=== PATIENT | female | born 1980 | race Caucasian/White ===

== ENCOUNTER → 2019-11-29 10:59 | Outpatient (CLI) | payer BC, SELFPAY ==
[2019-11-29 11:31] LABS: Basophils % 0.4 % (0.1-2.0); Eosinophils # 0.3 K/mm3 (0.0-0.4); Eosinophils % 2.7 % (0.1-12.0); Hematocrit 42.7 % (37.0-47.0); Lymphocytes # 3.4 K/mm3 (0.7-4.5); Lymphocytes % 33.8 % (10-50); Mean Corpuscular HGB Conc 32.6 g/dL (31.8-35.4); Mean Corpuscular Hemoglobin 30.5 pg (27.0-31.2); Mean Corpuscular Volume 93.4 fl (81-99); Mean Platelet Volume 6.9 fl (7.4-10.4); Monocytes # 0.6 K/mm3 (0.1-1.0); Monocytes % 6.1 % (1.7-9.3); Neutrophils # 5.7 K/mm3 (1.8-7.8); Neutrophils % 57.1 % (37.0-80.0); Platelet Count 326 K/mm3 (142-424); Red Blood Count 4.57 M/mm3 (4.20-5.40); Red Cell Distribution Width 12.2 % (11.5-17.5)
[2019-11-29 16:14] LABS: Alanine Aminotransferase 18 U/L (9-52); Albumin Level 3.4 g/dL (3.4-5.0); Albumin/Globulin Ratio 1.3 (1.1-1.8); Alkaline Phosphatase 67 U/L (46-116); Anion Gap 11.4 mEq/L (5-15); Bilirubin,Total 0.2 mg/dL (0.2-1.0); Blood Urea Nitrogen 12 mg/dL (7-18); Calcium 8.4 mg/dL (8.5-10.1); Carbon Dioxide 30 mmol/L (21.0-32.0); Chloride 106 mmol/L (98-107); Creatinine,Serum 0.85 mg/dL (0.55-1.02); Estimated Glomerular Filt Rate 74 ml/min (>60); GFR (African American) 90 ML/MIN (>60); Globulin 2.6 gm/dl (1.3-3.2); Glucose 74 mg/dL (74-106); Sodium 143 mmol/L (137-145); Thyroid Stimulating Hormone 1.44 uIU/ml (0.358-3.740)
[2019-11-29 16:19] LABS: Aspartate Amino Transferase 12 U/L (15-37); Potassium 4.4 mmoL/L (3.5-5.1)
[2019-11-30 16:29] LABS: Vitamin B12 456 pg/mL (232-1245); Vitamin D 25 Hydroxy 26.3 ng/mL (30.0-100.0)
== END ==
PROVIDERS: Visit Provider Nurse Practitioner Family
DX: R53.83 Other fatigue (principal); E55.9 Vitamin D deficiency, unspecified
CPT/HCPCS: 36415; 80053; 82607; 82652; 84443; 85025

== ENCOUNTER 2021-04-28 14:25 | Emergency (ER) | payer BC, SELFPAY ==
[2021-04-28 15:30] VITALS: BP 118/79; PULSE 97; RESP 19; TEMP 36.6; O2SAT 99; BMI 33.5
[2021-04-28 16:06] LABS: Apearance,Urine Clear (Clear); Color,Urine Yellow (Yellow); PH,Urine 5.5 (5.0-8.5); Protein,Urine Negative (Negative)
[2021-04-28 16:07] LABS: Bilirubin,Urine Negative (Negative); Blood, Urine Trace (Negative); Glucose,Urine (UA) Negative (Negative); Ketones,Urine Negative (Negative); UTC Leukocyte Esterase,Urine Negative (Negative); UTC Nitrate,Urine Negative (Negative); Urobilinogen,Urine 0.2 EU/dl (0.2)
--- NOTE | 2021-04-28 16:07 | HMH.EDUTC ---
[facility] [place] Clinical Impression: Muscle spasm Disposition: Home, Self-Care Condition on Discharge: Good Instructions: Low Back Pain, DI for Low Back Pain, Cyclobenzaprine Additional Instructions: *Ibuprofen chidi 6 hours with meal as needed for pain/inflammation *Remember you had a Toradol shot in the clinic today, which is similar to Motrin *Not additional anti-inflammatory like motrin, aleve, advil with the above amount of ibuprofen. You can still take Tylenol every 4 hours as needed if you need something else for pain *Ice 20 minutes every 2 hours for the first 48 hours after the initial injury followed by moist heat every 20 minutes 3-4 times a day to affected area *Muscle relaxer every 8 hours as needed for muscle spasms but remember, it WILL cause drowsiness You cannot take it and drive, operate machinery or care for small children. *Keep this area active, no movement leads to more stiffness, However take it easy and avoid heavy lifting pushing or pulling *Follow up with you family doctor if no improvement for further treatment Prescriptions: Cyclobenzaprine HCl [Flexeril 10mg tablet] 10 mg PO TID PRN #15 tab PRN Reason: Muscle Spasm Transmission Status: Pending to [facility] methylPREDNISolone [Medrol 4mg tab] 4 mg PO DIRECTED #21 tab Transmission Status: P[facility] Referrals: Roberta Velasco APRN [Primary Care Provider] - As needed Time of Disposition: 16:40 Medical Decision Making - Jong Inquiry Pt receiving controlled substance: No Jong was queried for this patient: No Vital Signs: 04/28/21 15:30 04/28/21 16:28 Temperature 97.9 F 97.9 F Temperature Source Oral Pulse Rate 97 H Pulse Rate [Right Brachial] 97 H Respiratory Rate 19 19 Blood Pressure 118/79 Blood Pressure [Right Arm] 118/79 Blood Pressure Mean [Right Arm] 92 Blood Pressure Source [Right Arm] Automatic Cuff Blood Pressure Position [Right Arm] Sitting 02 Sat by Pulse Oximetry 99 Oxygen Delivery Method Room Air - Lab Data Lab Results 04/28/21 15:55: Urine Color Yellow, Urine Appearance Clear, Urine pH 5.5, Ur Specific [place] 1.010, Urine Protein Negative, Urine Glucose (UA) Negative, Urine Ketones Negative, Urine Blood Trace, Urine Nitrate Negative, Urine Bilirubin Negative, Urine Urobilinogen 0.2, Ur Leukocyte Esterase Negative Orders (Tests/Meds): ED MEDICATIONS Discontinued Medications Generic Name Dose Route Start Last Admin Trade Name Marsha PRN Reason Stop Dose Admin Cyclobenzaprine HCl 10 mg 04/28/21 16:12 04/28/21 16:27 Cyclobenzaprine 10mg Tablet PO 04/28/21 16:13 10 mg ONCE ONE Administration Methylprednisolone Sodium Succinate 125 mg 04/28/21 16:12 04/28/21 16:28 Methylprednisolone Sod Succ 125mg Vial IM 04/28/21 16:13 125 mg ONCE ONE Administration [facility] [place] - General Stated complaint: lower back pain Time Seen by Provider: 04/28/21 16:07 Mode of Arrival: Ambulatory Source of Information: Patient Limitations: No Limitations Description of Symptoms (Recalled from Triage Doc. by RN): PATIENT C/O MID-BACK TO RIGHT SIDE HEENT Symptoms (Recalled from RN notes): No Resp Symptoms (Recalled from RN notes): No Skin Symptoms (Recalled from RN notes): No MS Symptoms (Recalled from RN notes): Yes Functional Status (Recalled from RN notes): WNL - History of Present Illness Provider Complaint: Patient states that she was walking across the road and not sure if she may have stepped wrong or turned wrong and felt like she pulled something in her back just below her ribs and when it spasms up it feels like it comes around her side States that she has tried to stretch but feels like she gets caught up and makes the spasm worse Denies falling denies known injury - Related Data Home Medications Medication Instructions Recorded Confirmed ascorbic acid (vitamin C) 500 mg mg PO 02/10/18 03/27/21 capsule loratadine 10 mg tablet 10 m
[2021-04-28 16:28] VITALS: BP 118/79; PULSE 97; RESP 19; TEMP 36.6; O2SAT 99
== END 2021-04-28 16:46 | disposition home or self-care (01) ==
PROVIDERS: Emergency Provider Nurse Practitioner; PCP Nurse Practitioner Family
DX: M62.830 Muscle spasm of back (principal); M54.5 Low back pain; F17.210 Nicotine dependence, cigarettes, uncomplicated; Z88.5 Allergy status to narcotic agent; J45.909 Unspecified asthma, uncomplicated
CPT/HCPCS: 81003; 96372; 99202; G0463

== ENCOUNTER → 2021-05-10 11:23 | Outpatient (CLI) | payer BC, SELFPAY ==
[2021-05-10 11:57] LABS: Basophils # 0.1 K/mm3 (0-0.2); Basophils % 0.8 % (0.1-2.0); Eosinophils # 0.3 K/mm3 (0.0-0.4); Eosinophils % 2.4 % (0.1-12.0); Hematocrit 40.4 % (37.0-47.0); Hemoglobin 13.8 g/dL (12.2-16.2); Lymphocytes # 3.7 K/mm3 (0.7-4.5); Lymphocytes % 35.3 % (10-50); Mean Corpuscular HGB Conc 34.3 g/dL (31.8-35.4); Mean Corpuscular Hemoglobin 30.5 pg (27.0-31.2); Mean Corpuscular Volume 88.9 fl (81-99); Mean Platelet Volume 7.3 fl (7.4-10.4); Monocytes # 0.5 K/mm3 (0.1-1.0); Monocytes % 4.3 % (1.7-9.3); Neutrophils % 57.2 % (37.0-80.0); Platelet Count 305 K/mm3 (142-424); Red Blood Count 4.54 M/mm3 (4.20-5.40); Red Cell Distribution Width 12.7 % (11.5-17.5); White Blood Count 10.5 K/mm3 (4.8-10.8)
[2021-05-10 12:11] LABS: Chloride 107 mmol/L (98-107); Sodium 139 mmol/L (136-145)
[2021-05-10 12:12] LABS: Potassium 4.1 mmoL/L (3.5-5.1)
[2021-05-10 12:14] LABS: Alanine Aminotransferase 13 U/L (12-78); Albumin Level 4.2 g/dl (3.5-5.0); Albumin/Globulin Ratio 1.8 (1.1-1.8); Alkaline Phosphatase 87 U/L (38-126); Anion Gap 13.1 mEq/L (5-15); Aspartate Amino Transferase 19 U/L (14-36); Bilirubin,Total 0.3 mg/dl (0.2-1.3); Blood Urea Nitrogen 6 mg/dl (7-17); Calcium 9.1 mg/dl (8.4-10.2); Carbon Dioxide 23 mmol/L (22.0-30.0); Cholesterol 201 mg/dl (140-200); Estimated Glomerular Filt Rate 93 ml/min (>60); GFR (African American) 112 ML/MIN (>60); Globulin 2.4 g/dL (1.3-3.2); Glucose 91 mg/dl (74-100); Total Protein,Serum 6.6 g/dl (6.3-8.2); Triglycerides 219 mg/dl (30-150); VLDL Cholesterol 44 mg/dL (0-40)
[2021-05-10 12:15] LABS: Chol/HDL Ratio 5.4 (1-3.5); HDL Cholesterol 37 mg/dl (40-60)
[2021-05-10 12:26] LABS: Direct LDL Cholesterol 115.88 mg/dL (100-129)
[2021-05-10 12:32] LABS: Free Thyroxine Index 2.3 ug/dL (5.93-13.13); Triiodothryronine (T3) Uptake 29 % (23.5-40.5)
[2021-05-10 12:46] LABS: Thyroid Stimulating Hormone 1.09 uIU/mL (0.465-4.68)
[2021-05-10 18:20] LABS: Vitamin B12 342 pg/mL (239-931)
== END ==
PROVIDERS: Visit Provider Nurse Practitioner Obstetrics & Gynecology
DX: Z01.419 Encounter for gynecological examination (general) (routine) without abnormal findings (principal); R53.82 Chronic fatigue, unspecified; Z79.899 Other long term (current) drug therapy
CPT/HCPCS: 36415; 80053; 80061; 82607; 84436; 84443; 84479; 85025

== ENCOUNTER → 2021-10-22 08:44 | Outpatient (CLI) | payer BC, SELFPAY | PROVIDERS: Visit Provider Nurse Practitioner | DX: Z20.822 Contact with and (suspected) exposure to COVID-19 (principal) | CPT/HCPCS: C9803; U0003; U0005 ==

== ENCOUNTER → 2021-11-18 10:50 | Outpatient (CLI) | payer BC, SELFPAY ==
[2021-11-19 06:54] LABS: Covid-19 Nasal PCR Sendout Lex NOT DETECTED
== END ==
PROVIDERS: PCP Internal Medicine Adolescent Medicine; Visit Provider Nurse Practitioner
DX: Z20.822 Contact with and (suspected) exposure to COVID-19 (principal)
CPT/HCPCS: C9803; U0004; U0005

== ENCOUNTER → 2022-01-28 15:38 | Outpatient (CLI) | payer BC, SELFPAY ==
--- NOTE | 2022-01-28 15:45 | XR_ITS ---
FINAL REPORT CLINICAL HISTORY: SOB AND COUGH FINDINGS: TWO-VIEW CHEST The heart size is normal. The mediastinum is normal. The lungs are clear. There is no pneumothorax. IMPRESSION: No acute cardiopulmonary process. Reviewed, Interpreted and Dictated by Thor Mccarty MD Transcribed by Luz Maria Huntley Authenticated by Thor Mccarty MD on 01/28/2022 04:51:49 PM [facility]
[2022-01-28 16:24] LABS: Basophils # 0.2 K/mm3 (0-0.2); Basophils % 1.4 % (0.1-2.0); Eosinophils % 0.1 % (0.1-12.0); Hematocrit 40.5 % (37.0-47.0); Hemoglobin 13.2 g/dL (12.2-16.2); Lymphocytes # 2.2 K/mm3 (0.7-4.5); Lymphocytes % 16.6 % (10-50); Mean Corpuscular HGB Conc 32.7 g/dL (31.8-35.4); Mean Corpuscular Hemoglobin 30.2 pg (27.0-31.2); Mean Corpuscular Volume 92.5 fl (81-99); Mean Platelet Volume 7.1 fl (7.4-10.4); Monocytes # 0.6 K/mm3 (0.1-1.0); Monocytes % 4.1 % (1.7-9.3); Neutrophils # 10.4 K/mm3 (1.8-7.8); Neutrophils % 77.8 % (37.0-80.0); Platelet Count 355 K/mm3 (142-424); Red Blood Count 4.38 M/mm3 (4.20-5.40); White Blood Count 13.3 K/mm3 (4.8-10.8)
[2022-01-28 16:51] LABS: Alanine Aminotransferase 27 U/L (12-78); Albumin Level 3.7 g/dl (3.5-5.0); Albumin/Globulin Ratio 1.6 (1.1-1.8); Alkaline Phosphatase 76 U/L (38-126); Anion Gap 8.9 mEq/L (5-15); Aspartate Amino Transferase 20 U/L (14-36); Bilirubin,Total 0.3 mg/dl (0.2-1.3); Blood Urea Nitrogen 16 mg/dl (7-17); Carbon Dioxide 26 mmol/L (22.0-30.0); Chloride 108 mmol/L (98-107); Estimated Glomerular Filt Rate 69 ml/min (>60); GFR (African American) 83 ML/MIN (>60); Globulin 2.3 g/dL (1.3-3.2); Glucose 117 mg/dl (74-100); Potassium 3.9 mmoL/L (3.5-5.1); Sodium 139 mmol/L (136-145)
[2022-01-28 17:01] LABS: NT Pro Brain Natriuretic Pep. 34.2 pg/mL (0-125)
[2022-01-28 17:23] LABS: Thyroid Stimulating Hormone 0.45 uIU/mL (0.465-4.68)
== END ==
PROVIDERS: PCP Nurse Practitioner Family; Visit Provider Nurse Practitioner Family
DX: R06.02 Shortness of breath (principal); R05.9 Cough, unspecified; R53.1 Weakness
CPT/HCPCS: 36415; 71046; 80053; 83880; 84443; 85025

== ENCOUNTER → 2023-03-13 12:39 | Outpatient (CLI) | payer BC, SELFPAY ==
--- NOTE | 2023-03-13 12:44 | CA_ITS ---
FINAL REPORT TECHNIQUE: Ultrasound images of the deep venous system were obtained from the left groin to the calf veins. CLINICAL HISTORY: 2 weeks postop laparoscopic HX- bakers cyst FINDINGS: The deep venous system is normally compressible. Normal flow is identified. A moderate sized Sheehan cyst is noted. IMPRESSION: No evidence of left lower extremity DVT. Reviewed, Interpreted and Dictated by Henrique Cruz III, MD Transcribed by Floresita Duenas Authenticated and [facility]
== END ==
PROVIDERS: PCP Internal Medicine Adolescent Medicine; Visit Provider Orthopaedic Surgery
DX: R22.42 Localized swelling, mass and lump, left lower limb (principal)
CPT/HCPCS: 93971

== ENCOUNTER 2025-07-24 21:46 | Emergency (ER) | payer BC, SELFPAY ==
[2025-07-24 22:07] VITALS: BP 134/85; PULSE 78; RESP 15; TEMP 36.8; O2SAT 100; BMI 32.5
--- NOTE | 2025-07-24 22:08 | ECG_ITS ---
APPROVED REPORT Exam: Resting ECG HR:70 bpm ECG Measurements Heart Rate 70 AXES OH 152 P 58 QRSd 83 QRS 66 QT 368 T 106 QTc 389 Conclusion SINUS RHYTHM LOW QRS VOLTAGE IN PRECORDIAL LEADS [QRS DEFLECTION < 1.0 mV IN CHEST LEADS] MODERATE ST DEPRESSION [0.05+ mV ST DEPRESSION] ABNORMAL ECG UNCONFIRMED REPORT Electronically signed by : ROSA BROOKS, 07/25/2025 04:43:20
[2025-07-24 22:10] VITALS: BP 134/81; PULSE 84; RESP 18; TEMP 36.9; O2SAT 99
--- OUTSIDE RECORDS SUMMARY | 2025-07-24 22:22 | XMS_ITS | Clinical Summary ---
Author Organization [facility] Address [address] [place] [address] Care Team Providers Care Sewer Head Name Role Phone Unavailable Primary Care Provider Unavailabl e Family History Medical History Relation Name Comments Hypertension Father Relation Name Status Comments Father Social History Tobacco Use Types Packs/Day Years Used Date Smoking Tobacco: Every Day Comments Unknown Sex and Gender Information Value Date Recorded Sex Assigned at Not on file Legal Sex Female 8:48 PM EDT Gender Identity Not on file Sexual Orientation Not on file Last Filed Vital Signs Vital Sign Reading Time Taken Comments Blood Pressure - - Pulse - - Temperature - - Respiratory Rate - - Oxygen Saturation - - Inhaled Oxygen Concentration - - Weight 95.4 kg (210 lb 5.1 oz) 07/22/2017 8:55 A M EDT Height 174 cm (5' 8.5 ) 07/22/2017 8:55 AM EDT Body Mass Index 31.51 07/22/2017 8:55 AM EDT Plan of Treatment Not on file
--- OUTSIDE RECORDS SUMMARY | 2025-07-24 22:22 | XMS_ITS | Patient Health Record ---
[facility] [address] [id number] Care Team Providers Care Content Strategy Lead Name Role Phone Marquise Chu Primary Care Provider Reason For Referral No Information Medications Medication SIG (Take, Route, Frequency, Duration) Notes Start Date End Date Status Tamiflu 75 MG 1 cap(s) orally once a day; Duration: 10 days 12/16/2018 Active Plan Of Treatment No Information Insurance Providers Payer Name Payer Address Payer Phone Subscriber Number Group Number Insured Name Patient Relationship to Insured Coverage Start Date Coverage End Date [facility] [address] [address] [place] [address] [id number] Lisa Koch Self - patient is the insured
--- NOTE | 2025-07-24 22:29 | XR_ITS ---
PROCEDURE INFORMATION: Exam: XR Chest Exam date and time: 07/24/2025 11:19 PM Age: 44 years old Clinical indication: Pain; Chest pressure; Additional info: Chest pain, shortness of breath TECHNIQUE: Imaging protocol: Radiologic exam of the chest. Views: 1 view. COMPARISON: CR XR CHEST 2V 01/28/2022 3:53 PM FINDINGS: Lungs: Unremarkable. No consolidation. Pleural spaces: Unremarkable. No pleural effusion. No pneumothorax. Heart/Mediastinum: Unremarkable. No cardiomegaly. Bones/joints: Unremarkable. IMPRESSION: No acute findings.
--- NOTE | 2025-07-24 22:33 | HMH.EDGENADL ---
Discharge Plan Disposition Patient Disposition: Home, Self-Care Prescriptions Prescriptions: No Action venlafaxine 37.5 mg capsule,extended release 24hr 37.5 mg PO DAILY albuterol sulfate 90 mcg/actuation HFA aerosol inhaler 1 inh inhalation Q4-6H PRN (Reason: Bronchospasm) Patient Comments: INHALE TWO PUFFS BY MOUTH EVERY 4 HOURS NEEDED loratadine [Claritin] 10 mg tablet 10 mg PO ONCE ascorbic acid (vitamin C) 500 mg capsule 1,000 mg PO DAILY fluticasone propionate 50 mcg/actuation spray,suspension 2 spray INTRANASAL NEEDED PRN (Reason: Allergic Symptoms) Patient Comments: INSTILL 1 SPRAY IN EACH NOSTRIL EVERY DAY metoprolol succinate 25 mg Tablet Extended Release 24 Hr 25 mg PO DAILY cyclobenzaprine 10 MG tablet 10 mg PO TID PRN (Reason: Muscle Spasm) Qty: 15 0RF Referrals Follow up/Referrals: Vinny Perez MD [Primary Care Provider, Internal Medicine] - See instructions Activity Restrictions/Add. Instructions Additional Instructions/Restrictions: Please follow-up with your primary care provider and with our software quality test engineer for further assessment.. Please return to the emergency department if you develop any new or worsening symptoms or become concerned for your health. Clinical Impressions Clinical Impression: Palpitations Print Language Print Language: Spanish Discharge ED Provider: Bryan Bashir General Adult HPI <Maximilian Lopez MD - Last Filed: 07/24/25 23:29> General Chief complaint: Arrhythmia/Palpitations Stated complaint: irregular heartbeat Time Seen by Provider: 07/24/25 22:17 Mode of Arrival: Ambulatory Source of Information: Patient Description of Symptoms (Recalled from ER Triage Doc. by RN): patient presents to the ED today after experiencing irregular heart rate and rhythm since 9 am. 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 patient states she has some chest pressure and feels her heart quivering into her esophagus . patient appears to be uneasy and even states she feels uneasy. History of Present Illness HPI narrative: Gayle Koch is a 44-year-old female with a history of tachycardia on metoprolol 25 mg who presents to the emergency department for complaints of irregular heart rhythm. Patient states that ever since 9:00 this morning, she has had feelings of fluttering in her chest that she can feel up in her throat. She states that this is also associated with shortness of breath. She reports that she listened herself with a stethoscope and she can tell that her heart was skipping a beat. She denies any issues with her thyroid. She states that she has never had any heart issues in the past. She has never been evaluated by software quality test engineer. She tried vagal maneuvers without relief. She states that she drank a cup of coffee this morning and tea throughout the day but not an abnormal amount of caffeine. Related Data Home Medications ?Medication ?Instructions ?Recorded ?Confirmed loratadine 10 mg tablet (Claritin) 10 mg PO ONCE 02/10/18 07/24/25 fluticasone propionate 50 2 spray intranasal NEEDED PRN 03/27/21 07/24/25 mcg/actuation nasal Allergic Symptoms spray,suspension albuterol sulfate 90 mcg/actuation 1 inh inhalation Q4-6H PRN 01/26/24 07/24/25 aerosol inhaler Bronchospasm ascorbic acid (vitamin C) 500 mg 1,000 mg PO DAILY 01/26/24 07/24/25 capsule venlafaxine 37.5 mg 37.5 mg PO DAILY 01/26/24 07/24/25 capsule,extended release 24 hr metoprolol succinate 25 mg 25 mg PO DAILY 07/24/25 07/24/25 tablet,extended release 24 hr Previous Rx's ?Medication ?Instructions ?Recorded cyclobenzaprine 10 mg tablet 10 mg PO TID PRN Muscle Spasm #15 04/28/21 tabs Allergies Allergy/AdvReac Type Severity Reaction Status Date / Time aspirin (ASPIRIN) Allergy Severe SWELLING Verified 01/26/24 13:54 oxycodone (From PERCOCET) Allergy Severe S-SWELLS-OR Verified 01/26/24 13:54 AL/THROAT EGGS (FOOD) Allergy Severe S-SWELLS-OR Uncoded 01/26/24 13:54 AL/THROAT PFSH <Maximilian Lopez MD - Last Filed: 07/24/25 23:29> [facility] Disclaimer: The information contained in this section may have been updated after the patient was seen, as this information can be updated by other users. Medical History (Updated 07/24/25 @ 23:27 by Bryan Bashir MD) Muscle spasm Surgical History (Updated 01/26/24 @ 13:56 by AIMEE Schmidt) History of knee surgery Family History Grandmother Cancer maternal-breast Father Hypertension Legionnaires' disease Social History (Updated 01/26/24 @ 13:58 by AIMEE Schmidt) Smoking Status: Current some day smoker tobacco type: cigarettes alcohol intake: never substance use type: denies use current occupational status: other Travel in the last 8 weeks?: None housing: house Have you lived/traveled outside US in past 30 days?: No Contact w/someone who lives/traveled outside US past 30 days?: No Exposure to someone with infectious disease in past 14 days?: No Do you have a fever (greater than 100.4 F or 38 C)?: No Have you tested positive for COVID-19?: No Exposed to someone with COVID-19 in past 14 days?: No Do you have a sore throat?: No Do you have a cough?: No Do you have any weakness?: No Do you have any diarrhea?: No Are you experiencing any unusual bleeding?: No Do you have any muscle aches/pain?: No Do you have any abdominal pain?: No Are you experiencing loss of taste or smell?: No Other Medical History Have you received the Flu Vaccine for this season: No Have you received the Pneumonia Vaccine: No <Maximilian Lopez MD - Last Filed: 07/24/25 23:29> ROS Obtained: Yes Systems reviewed as appropriate & no additional complaints except as documented Physical Exam <Maximilian Lopez MD - Last Filed: 07/24/25 23:29> General General appearance: alert, in no apparent distress and anxious Head Head exam: atraumatic Eye Eye exam: Present normal appearance ENT ENT exam: Present normal external ear exam Neck Neck exam: Present full ROM Chest Chest inspection: Present symmetric chest wall rise Respiratory Respiratory exam: Present normal lung sounds bilaterally; Absent respiratory distress, wheezes or stridor Cardiovascular Cardiovascular exam: Present regular rate and normal rhythm Abdominal Exam Abdominal exam: Present soft; Absent tenderness or guarding Extremities Exam Extremities exam: Present normal inspection Back Exam Back exam: Present normal inspection Neurological Exam Neurological exam: Present alert and oriented X3 Psychiatric Psychiatric exam: Present normal affect Skin Skin exam: Present warm and dry Medical Decision Making <Maximilian Lopez MD - Last Filed: 07/24/25 23:29> Medical Records Screening: Per USPSTF and CDC recommendations, given the prevalence of disease in our region, it is our hospital?s policy to screen for HIV and viral Hepatitis for all patients aged 18 and over and those with ongoing risk factors. Jong Inquiry Pt receiving controlled substance: No Vital Signs: 07/24/25 22:07 07/24/25 22:10 Temperature 98.2 F 98.4 F Temperature Source Oral Oral Pulse Rate 84 Pulse Rate [Right Radial] 78 Respiratory Rate 15 18 Blood Pressure 134/81 Blood Pressure [Right Arm] 134/85 Blood Pressure Mean [Right Arm] 101 Blood Pressure Source Automatic Cuff Blood Pressure Source [Right Arm] Automatic Cuff Blood Pressure Position Sitting Blood Pressure Position [Right Arm] Sitting 02 Sat by Pulse Oximetry 100 99 Oxygen Delivery Method Room Air Room Air Lab Data Lab Results 07/24/25 22:10: WBC 12.0 H, RBC 4.49, Hgb 13.9, Hct 40.5, MCV 90.2, MCH 31.0, MCHC 34.3, RDW 11.9, Plt Count 355, MPV 9.2, Neut % (Auto) 48.8, Lymph % (Auto) 38.3, [place] % (Auto) 8.8, Eos % (Auto) 2.4, Baso % (Auto) 0.4, Neut # (Auto) 5.9, Lymph # (Auto) 4.6 H, [place] # (Auto) 1.1 H, Eos # (Auto) 0.3, Baso # (Auto) 0.1, D-Dimer 0.58 H, Sodium 139, Potassium 3.7, Chloride 104, Carbon Dioxide 26, Anion Gap 12.7, BUN 14, Creatinine 0.90, Estimated Creat Clear 109, Estimated GFR 68, Est GFR ( Amer) 82, Glucose 90, Calcium 8.9, Magnesium 1.8, Total Bilirubin 0.5, AST 23, ALT 20, Alkaline Phosphatase 97, Troponin I < 0.01, NT-Pro-B Natriuret Pep < 20.0, Total Protein 6.6, Albumin 4.2, Globulin 2.4, Albumin/Globulin Ratio 1.8, TSH 2.26, Free T4 1.03, Serum HCG, Qual Negative 07/24/25 22:10 07/24/25 22:10 Orders (Tests/Meds): ORDERS Category Date Time Status CXR --portable [XR chest portable] Stat Exams 07/24/25 22:29 Taken POCUS Point of Care (ER Only) Stat Exams 07/24/25 22:18 Ordered BNP [NT Pro Brain Natriuretic Pep.] Stat Lab 07/24/25 22:10 Completed CBC w/Auto Diff [Complete Blood Count Auto Diff] Stat Lab 07/24/25 22:10 Completed CMP [Comprehensive Metabolic Panel] Stat Lab 07/24/25 22:10 Completed D-Dimer Stat Lab 07/24/25 22:10 Completed Free T4 (Free Thyroxine) Stat Lab 07/24/25 22:10 Completed HCG Qualitative, Serum Stat Lab 07/24/25 22:10 Completed Magnesium Stat Lab 07/24/25 22:10 Completed TSH [Thyroid Stimulating Hormone] Stat Lab 07/24/25 22:10 Completed Troponin I Q3H Lab 07/25/25 01:30 Ordered Troponin I Q3H Lab 07/25/25 04:30 Ordered Troponin I Stat Lab 07/24/25 22:10 Completed Holter Monitor Req by Yaya/ Stat Y 07/24/25 23:26 Ordered ECG Data Tracing #1: I reviewed this ECG and interpreted as documented below: Normal sinus rhythm. No ST elevation or depression. QTc of 389 Medical Decision Narrative: Gayle Koch is a 44-year-old female with a history of tachycardia on metoprolol 25 mg who presents to the emergency department for complaints of irregular heart rhythm. Patient states that ever since 9:00 this morning, she has had feelings of fluttering in her chest that she can feel up in her throat. She states that this is also associated with shortness of breath. She reports that she listened herself with a stethoscope and she can tell that her heart was skipping a beat. She denies any issues with her thyroid. She states that she has never had any heart issues in the past. She has never been evaluated by software quality test engineer. She tried vagal maneuvers without relief. She states that she drank a cup of coffee this morning and tea throughout the day but not an abnormal amount of caffeine. On arrival, patient is hemodynamically stable, no acute distress, heart rate within normal range. Afebrile. Oxygen saturation in the upper 90s on room air. Physical exam, stated above, feels anxious. Female in no distress. She is alert and oriented. Cardiopulmonary exam without murmurs or rubs. No wheezing, rales or rhonchi. Differential diagnosis includes, but is not limited to: Electrolyte derangement, cardiac arrhythmia, ACS, pulmonary embolism, pneumonia, hyperthyroidism, pulmonary [place], pericardial effusion, among others. The most morbid conditions were considered and workup was based on these. Workup in the emergency department included: [id number]-[id number] cardiac ultrasound, CBC with differential, D-dimer, CMP, troponin, NT proBNP, TSH/free T4, EKG, serum test, chest x-ray. Chest x-ray interpreted by me personally. No focal consolidation, no pneumothorax, no widened mediastinum, no enlargement of the cardiac silhouette. Unremarkable chest x-ray. See radiology report for details. [place] cardiac ultrasound showed no pericardial effusion, normal estimated left ventricular ejection fraction, no evidence of right heart strain. See procedure note for details. EKG without ischemic changes. See interpretation above. At this time, patient's workup shows initial troponin less than 0.01, NT proBNP less than 20, electrolytes within normal range, D-dimer very mildly elevated at 0.58, however negative per years criteria. Very mild leukocytosis of 12 but no neutrophilia. No anemia. Remainder of patient's workup is pending at this time. Patient's care was handed off to the oncoming physician, Dr. Bashir, pending completion of her workup and reassessment. I do feel that if her workup is negative today that she would likely be appropriate for discharge with Holter monitor and cardiology follow-up, however, patient's ultimate disposition is to be determined by the oncoming physician pending completion of her workup. <Bryan Bashir MD - Last Filed: 07/24/25 23:32> Vital Signs: 07/24/25 22:07 07/24/25 22:10 Temperature 98.2 F 98.4 F Temperature Source Oral Oral Pulse Rate 84 Pulse Rate [Right Radial] 78 Respiratory Rate 15 18 Blood Pressure 134/81 Blood Pressure [Right Arm] 134/85 Blood Pressure Mean [Right Arm] 101 Blood Pressure Source Automatic Cuff Blood Pressure Source [Right Arm] Automatic Cuff Blood Pressure Position Sitting Blood Pressure Position [Right Arm] Sitting 02 Sat by Pulse Oximetry 100 99 Oxygen Delivery Method Room Air Room Air Lab Data Lab Results 07/24/25 22:10: WBC 12.0 H, RBC 4.49, Hgb 13.9, Hct 40.5, MCV 90.2, MCH 31.0, MCHC 34.3, RDW 11.9, Plt Count 355, MPV 9.2, Neut % (Auto) 48.8, Lymph % (Auto) 38.3, [place] % (Auto) 8.8, Eos % (Auto) 2.4, Baso % (Auto) 0.4, Neut # (Auto) 5.9, Lymph # (Auto) 4.6 H, [place] # (Auto) 1.1 H, Eos # (Auto) 0.3, Baso # (Auto) 0.1, D-Dimer 0.58 H, Sodium 139, Potassium 3.7, Chloride 104, Carbon Dioxide 26, Anion Gap 12.7, BUN 14, Creatinine 0.90, Estimated Creat Clear 109, Estimated GFR 68, Est GFR ( Amer) 82, Glucose 90, Calcium 8.9, Magnesium 1.8, Total Bilirubin 0.5, AST 23, ALT 20, Alkaline Phosphatase 97, Troponin I < 0.01, NT-Pro-B Natriuret Pep < 20.0, Total Protein 6.6, Albumin 4.2, Globulin 2.4, Albumin/Globulin Ratio 1.8, TSH 2.26, Free T4 1.03, Serum HCG, Qual Negative Orders (Tests/Meds): ORDERS Category Date Time Status CXR --portable [XR chest portable] Stat Exams 07/24/25 22:29 Taken POCUS Point of Care (ER Only) Stat Exams 07/24/25 22:18 Ordered BNP [NT Pro Brain Natriuretic Pep.] Stat Lab 07/24/25 22:10 Completed CBC w/Auto Diff [Complete Blood Count Auto Diff] Stat Lab 07/24/25 22:10 Completed CMP [Comprehensive Metabolic Panel] Stat Lab 07/24/25 22:10 Completed D-Dimer Stat Lab 07/24/25 22:10 Completed Free T4 (Free Thyroxine) Stat Lab 07/24/25 22:10 Completed HCG Qualitative, Serum Stat Lab 07/24/25 22:10 Completed Magnesium Stat Lab 10/06/25 22:10 Completed TSH [Thyroid Stimulating Hormone] Stat Lab 07/24/25 22:10 Completed Troponin I Q3H Lab 07/25/25 01:30 Ordered Troponin I Q3H Lab 07/25/25 04:30 Ordered Troponin I Stat Lab 07/24/25 22:10 Completed Holter Monitor Req by Yaya/ Stat Y 07/24/25 23:26 Ordered Medical Decision Narrative: Gayle Koch is a 44-year-old female with a history of tachycardia on metoprolol 25 mg who presents to the emergency department for complaints of irregular heart rhythm. Patient states that ever since 9:00 this morning, she has had feelings of fluttering in her chest that she can feel up in her throat. She states that this is also associated with shortness of breath. She reports that she listened herself with a stethoscope and she can tell that her heart was skipping a beat. She denies any issues with her thyroid. She states that she has never had any heart issues in the past. She has never been evaluated by software quality test engineer. She tried vagal maneuvers without relief. She states that she drank a cup of coffee this morning and tea throughout the day but not an abnormal amount of caffeine. On arrival, patient is hemodynamically stable, no acute distress, heart rate within normal range. Afebrile. Oxygen saturation in the upper 90s on room air. Physical exam, stated above, feels anxious. Female in no distress. She is alert and oriented. Cardiopulmonary exam without murmurs or rubs. No wheezing, rales or rhonchi. Differential diagnosis includes, but is not limited to: Electrolyte derangement, cardiac arrhythmia, ACS, pulmonary embolism, pneumonia, hyperthyroidism, pulmonary [place], pericardial effusion, among others. The most morbid conditions were considered and workup was based on these. Workup in the emergency department included: [id number] cardiac ultrasound, CBC with differential, D-dimer, CMP, troponin, NT proBNP, TSH/free T4, EKG, serum test, chest x-ray. Chest x-ray interpreted by me personally. No focal consolidation, no pneumothorax, no widened mediastinum, no enlargement of the cardiac silhouette. Unremarkable chest x-ray. See radiology report for details. [place] cardiac ultrasound showed no pericardial effusion, normal estimated left ventricular ejection fraction, no evidence of right heart strain. See procedure note for details. EKG without ischemic changes. See interpretation above. At this time, patient's workup shows initial troponin less than 0.01, NT proBNP less than 20, electrolytes within normal range, D-dimer very mildly elevated at 0.58, however negative per years criteria. Very mild leukocytosis of 12 but no neutrophilia. No anemia. Remainder of patient's workup is pending at this time. Patient's care was handed off to the oncoming physician, Dr. Bashir, pending completion of her workup and reassessment. I do feel that if her workup is negative today that she would likely be appropriate for discharge with Holter monitor and cardiology follow-up, however, patient's ultimate disposition is to be determined by the oncoming physician pending completion of her workup. Mckay DENG: I assumed care of the patient at the time of handoff from the prior provider. On reassessment, patient remains hemodynamically stable. We considered obtaining a second troponin but given the duration of her symptoms and the lack of definitive chest pain, I do not think she requires a second troponin at this time. Patient was given a Holter monitor and instructed follow-up with cardiology. Patient was discharged in stable condition. Return precautions given. Procedures <Maximilian Lopez MD - Last Filed: 07/24/25 23:29> Limited Ultrasound Interpretation:: Limited cardiac ultrasound Indication: Chest pain, shortness of breath Identified cardiac views: -Cardiac parasternal long axis -Cardiac parasternal short axis -Cardiac apical four-chamber -Cardiac subxiphoid Findings: -Cardiac activity present -Wall motion grossly normal -Pericardial effusion absent -Right heart strain absent Impression: - From above Images were saved to permanent archive The study was technically adequate CPT: 53352 This study was performed by me, and I personally interpreted all images/videos. Based on my clinical judgement, these images were adequate and did not necessitate further imaging. Critical Care <Maximilian Lopez MD - Last Filed: 07/24/25 23:29> Critical Care Time Critical Care Time: No
[2025-07-24 22:40] LABS: Hematocrit 40.5 % (37.0-47.0); Hemoglobin 13.9 g/dL (12.2-16.2); Immature Granulocytes % 1.3 %; Mean Corpuscular HGB Conc 34.3 g/dL (31.8-35.4); Mean Corpuscular Hemoglobin 31.0 pg (27.0-31.2); Mean Corpuscular Volume 90.2 fl (81-99); Nucleated Red Blood Cells % 0 %; Platelet Count 355 K/mm3 (142-424); Red Blood Count 4.49 M/mm3 (4.20-5.40); Red Cell Distribution Width-SD 39.3 fL; White Blood Count 12.0 K/mm3 (4.8-10.8)
[2025-07-24 22:47] LABS: Alanine Aminotransferase 20 U/L (12-78); Albumin Level 4.2 g/dl (3.5-5.0); Albumin/Globulin Ratio 1.8 (1.1-1.8); Alkaline Phosphatase 97 U/L (38-126); Anion Gap 12.7 mEq/L (5-15); Aspartate Amino Transferase 23 U/L (14-36); Bilirubin,Total 0.5 mg/dl (0.2-1.3); Blood Urea Nitrogen 14 mg/dl (7-17); Calcium 8.9 mg/dl (8.4-10.2); Carbon Dioxide 26 mmol/L (22.0-30.0); Chloride 104 mmol/L (98-107); Creatinine Clearance Estimated 109 mL/min (50-200); Creatinine,Serum 0.90 mg/dl (0.52-1.04); Estimated Glomerular Filt Rate 68 ml/min (>60); GFR (African American) 82 ML/MIN (>60); Globulin 2.4 g/dL (1.3-3.2); Glucose 90 mg/dl (74-100); Magnesium 1.8 mg/dl (1.6-2.3); Potassium 3.7 mmoL/L (3.5-5.1); Sodium 139 mmol/L (136-145); Total Protein,Serum 6.6 g/dl (6.3-8.2)
[2025-07-24 22:53] LABS: D-Dimer 0.58 ug/mL (0.0-0.5)
[2025-07-24 22:59] LABS: NT Pro Brain Natriuretic Pep. < 20.0 pg/mL (0-125)
[2025-07-24 23:03] LABS: Troponin I < 0.01 ng/ml (0.00-0.034)
[2025-07-24 23:05] LABS: HCG Qualitative, Serum Negative (Negative)
[2025-07-24 23:06] LABS: Free T4 (Free Thyroxine) 1.03 ng/dl (0.78-2.19)
[2025-07-24 23:18] LABS: Thyroid Stimulating Hormone 2.26 uIU/mL (0.465-4.68)
--- NOTE | 2025-07-24 23:28 | PC.NURSE ---
Respiratory therapy notified of need for holter monitor
[2025-07-24 23:39] VITALS: BP 120/60; PULSE 64; RESP 20; TEMP 36.8; O2SAT 98
== END 2025-07-24 23:40 | disposition home or self-care (01) ==
PROVIDERS: Student in an Organized Health Care Education/Training Program; Emergency Provider Emergency Medicine; PCP Internal Medicine Adolescent Medicine
DX: R00.2 Palpitations (principal); R06.02 Shortness of breath; F17.210 Nicotine dependence, cigarettes, uncomplicated
CPT/HCPCS: 71045; 80053; 83735; 83880; 84439; 84443; 84484; 84703; 85025; 85378; 93005; 93225; 93226; 99283; 99284

== ENCOUNTER 2025-08-01 09:42 | Outpatient (CLI) | payer BC, SELFPAY ==
--- OUTSIDE RECORDS SUMMARY | 2025-06-29 08:29 | XMS_ITS | Encounter Summary ---
Author Organization [facility] Address [address] [place] [phone] Care Team Providers Care Resident Care Provider Name Role Phone Roberta Velasco APRN Primary Care Provid er Reason for Referral * Diagnostic Imaging (Routine) - Closed Specialty Diagnoses / Procedures Referred By Tomas hoffman Referred To Contact Radiology Diagnoses Visit for screening mammogram Procedures Mammo Screening Digital Tomosynthesis Bilateral With CAD Roberta Velasco, [place] [address] [place] [address] Phone: tel: fax: Referral ID Status Reason Start Date Expiration Date Visits Re quested Visits Authorized Closed 05/26/2025 08/25/2026 1 1 Reason for Visit * Diagnostic Imaging (Routine) - Closed Specialty Diagnoses / Procedures Referred By Tomas hoffman Referred To Contact Radiology Diagnoses Visit for screening mammogram Procedures Mammo Screening Digital Tomosynthesis Bilateral With CAD Roberta Velasco, [place] [address] [place] [address] Phone: tel: fax: Referral ID Status Reason Start Date Expiration Date Visits Re quested Visits Authorized Closed 05/26/2025 08/25/2026 1 1 Encounter Details Date Type Department Care Team (Latest Contact Info) Description 06/29/2025 8:29 AM EDT - 06/29/2025 11:59 PM EDT Hospital Encounter [facility] [address] [place] [address] Roberta Velasco, GANTRY CRANE OPERATOR [address] [place] [address] Visit for screening mammogram Discharge Disposition: Home [...] mammogram documented in this encounter Care Teams Resident Care Provider Relationship Specialty Start Date End Date Roberta Velasco APRN [address] [place] [phone] PCP - General Family Medicine 08/28/22 documented as of this encounter
--- OUTSIDE RECORDS SUMMARY | 2025-07-11 07:47 | XMS_ITS | Encounter Summary ---
Author Organization [facility] Address [address] [place] [phone] Care Team Providers Care Passenger Service Manager Name Role Phone Krista, Roberta Callie RESISTOR INSPECTOR Primary Care Provid er Reason for Referral * Diagnostic Imaging (Routine) - Closed Specialty Diagnoses / Procedures Referred By Tomas hoffman Referred To Contact Radiology Diagnoses Abnormal mammogram Procedures US Breast Right Limited KristaRoberta murray, RESISTOR INSPECTOR [address] [facility] [address] [place] [address] Phone: tel: fax: Referral ID Status Reason Start Date Expiration Date Visits Re quested Visits Authorized [id number] Closed 07/03/2025 10/02/2026 1 1 Reason for Visit * Diagnostic Imaging (Routine) - Closed Specialty Diagnoses / Procedures Referred By Tomas hoffman Referred To Contact Radiology Diagnoses Abnormal mammogram Procedures US Breast Right Limited Roberta Velascosey, RESISTOR INSPECTOR [address] [facility] [address] [place] [address] Phone: tel: fax: Referral ID Status Reason Start Date Expiration Date Visits Re quested Visits Authorized [id number] Closed 07/03/2025 10/02/2026 1 1 Encounter Details Date Type Department Care Team (Late st Contact Info) Description 07/11/2025 7:47 AM EDT - 07/11/2025 11:59 PM EDT Hospital Encounter [facility] [place] [address] [place] [address] Norm Caro MD [address] [facility] [address], [address] [place] [phone] Abnormal mammogram Discharge Disposition: Home or Self [...] unspecified documented in this encounter Care Teams Passenger Service Manager Relationship Specialty Start Date End Date Roberta Velasco APRN [address] [place] [address] [address] [place] [phone] PCP - General Family Medicine 08/28/22 documented as of this encounter
--- OUTSIDE RECORDS SUMMARY | 2025-08-01 09:48 | XMS_ITS | Clinical Summary ---
[facility] [address] [place] [address] Care Team Providers Care Ball Sorter Name Role Phone Roberta Velasco APRN Primary Care Provid er Encounters Date Type Department Care Team Description 07/11/2025 7:47 AM EDT - 07/11/2025 11:59 PM EDT Hospital Encounter [facility] [address] [place] [id number] Norm Caro MD Abnormal mammogram Discharge Disposition: Home or Self Care 07/11/2025 Travel 06/29/2025 8:29 AM EDT - 06/29/2025 11:59 PM EDT Hospital Encounter [facility] [address] [place] [phone] Roberta Velasco APRN Visit for screening mammogram Discharge Disposition: Home or Self Care 06/29/2025 Travel from Last 3 Months Family History Medical History Relation Name Comments Breast cancer Maternal Aunt 50s Breast cancer Maternal Grandmother Ovarian cancer Neg Hx Relation Name Status Comments Maternal Aunt Maternal Grandmother Social History Tobacco Use Types Packs/Day Years [...] on file Sexual Orientation Not on file Plan of Treatment Health Maintenance Due Date Last Done Comments ANNUAL PHYSICAL 1980 Annual Gynecologic Pelvic and Breast Exam 1980 HEPATITIS C SCREENING 1980 TDAP/TD VACCINES (1 - Tdap) 1999 INFLUENZA VACCINE 05/19/2025 MAMMOGRAM 06/29/2027 06/29/2025, 08/19, 06/10/2021, Additional history exists Pneumococcal Vaccine 0-49 Aged Out No longer eligible based on patient's age to complete this topic Procedures Procedure Name Priority Date/Time Associated Diagnosis Comments US BREAST RIGHT LIMITED Routine 07/11/2025 8:24 AM EDT Abnormal mammogram MAMMO SCREENING DIGITAL TOMOSYNTHESIS BILATERAL W CAD Routine 06/29/2025 9:12 AM EDT Visit for screening mammogram AMBRY GENETIC ASSESSMENT Routine 06/28/2025 9:36 AM EDT from Last 3 Months Results * US Breast Right Limited (07/11/2025 [...] mammography. No suspicious ultrasound findings were identified. Norm Caro MD IMG US ORDERABLES Final Result * (ABNORMAL) Mammo Screening Digital Tomosynthesis Bilateral [...] APRN IMG MAMMOGRAPHY EDUARDA VERA Final Result * Derm[employer]ved GENETIC RISK ASSESSMENT QUESTIONNAIRE - , (06/28/2025 9:36 AM EDT) Dharmesh 13.1 [facility] GENETICS NCCN NCCN not met [facility] Comment:High Risk Cancer Ris k Assessment 06/28/2025 9:36 AM EDT Roberta Velasco APRN GENETIC TESTING Edith l Result [facility]
[address] [place] [address], [place] [phone] from Last 3 Months Insurance Care Teams Ball Sorter Relationship Specialty Start Date End Date Roberta Velasco APRN [address] [place] [address] [place] [id number] PCP - General Family Medicine 08/28/22
--- OUTSIDE RECORDS SUMMARY | 2025-08-01 09:48 | XMS_ITS | Clinical Summary ---
Author Organization Healthcare Address [address] [place] [address] Care Team Providers Care Event Planning Intern Name Role Phone Unavailable Primary Care Provider [...]
--- OUTSIDE RECORDS SUMMARY | 2025-08-01 09:48 | XMS_ITS | Encounter Summary ---
[facility] [address] [place] [address] Care Team Providers Care General Clerk Name Role Phone Roberta Velasco APRN Primary Care Provid er Encounter Details Date Type Department Care Team (Latest Contact Info) Description 06/29/2025 Travel Social History Tobacco Use Types Packs/Day Years [...] on file documented as of this encounter Visit Diagnoses Not on filedocumented in this encounter Care Teams General Clerk Relationship Specialty Start Date End Date Roberta Velasco APRN [address] [facility] [address] [facility] [id number] PCP - General Family Medicine 08/28/22 documented as of this encounter
--- OUTSIDE RECORDS SUMMARY | 2025-08-01 09:48 | XMS_ITS | Encounter Summary ---
[facility] [address] [place] [address] Care Team Providers Care Prime Minister Name Role Phone Roberta Velasco APRN Primary Care Provid er Encounter Details Date Type Department Care Team (Latest Contact Info) Description 07/11/2025 Travel Social History Tobacco Use Types Packs/Day [...] on filedocumented in this encounter Care Teams Prime Minister Relationship Specialty Start Date End Date Roberta Velasco APRN [address] [facility] [address] [facility] [id number] PCP - General Family Medicine 08/28/22 documented as of this encounter
== END 2025-08-01 23:59 | disposition home or self-care (01) ==
LOC: RT 09:43
PROVIDERS: PCP Nurse Practitioner Family; Visit Provider Physician Assistant
DX: I49.1 Atrial premature depolarization (principal); I49.3 Ventricular premature depolarization; I47.29 Other ventricular tachycardia
CPT/HCPCS: 93270

== ENCOUNTER 2025-08-11 12:52 | Outpatient (CLI) | payer BC, SELFPAY ==
--- OUTSIDE RECORDS SUMMARY | 2025-06-29 08:29 | XMS_ITS | Encounter Summary ---
Author Organization [facility] Address [address] [place] [phone] Care Team Providers Care Research Methodologist Name Role Phone Roberta Velasco APRN Primary Care Provid er Reason for Referral * Diagnostic Imaging (Routine) - Closed Specialty Diagnoses / Procedures Referred By Tomas hoffman Referred To Contact Radiology Diagnoses Visit for screening mammogram Procedures Mammo Screening Digital Tomosynthesis Bilateral With CAD Roberta Velasco, [place] [address] [place] [address] Phone: tel: fax: Referral ID Status Reason Start Date Expiration Date Visits Re quested Visits Authorized Closed 05/26/2025 08/25/2026 1 1 Reason for Visit * Diagnostic Imaging (Routine) - Closed Specialty Diagnoses / Procedures Referred By Tmoas hoffman Referred To Contact Radiology Diagnoses Visit for screening mammogram Procedures Mammo Screening Digital Tomosynthesis Bilateral With CAD Roberta Velasco, [place] [address] [place] [address] Phone: tel: fax: Referral ID Status Reason Start Date Expiration Date Visits Re quested Visits Authorized Closed 05/26/2025 08/25/2026 1 1 Encounter Details Date Type Department Care Team (Latest Contact Info) Description 06/29/2025 8:29 AM EDT - 06/29/2025 11:59 PM EDT Hospital Encounter [facility] [address] [place] [address] Roberta Velasco, DIGITAL MARKETING STRATEGIST [address] [place] [address] Visit for screening mammogram Discharge Disposition: Home [...] mammogram documented in this encounter Care Teams Research Methodologist Relationship Specialty Start Date End Date Roberta Velasco APRN [address] [place] [address] [place] [phone] PCP - General Family Medicine 08/28/22 documented as of this encounter
--- OUTSIDE RECORDS SUMMARY | 2025-07-11 07:47 | XMS_ITS | Encounter Summary ---
Author Organization [facility] Address [address] [place] [phone] Care Team Providers Care Blocking Machine Tender Name Role Phone Krista, Roberta Callie TAKER OFF Primary Care Provid er Reason for Referral * Diagnostic Imaging (Routine) - Closed Specialty Diagnoses / Procedures Referred By Tomas hoffman Referred To Contact Radiology Diagnoses Abnormal mammogram Procedures US Breast Right Limited KristaRoberta murray, TAKER OFF [address] [facility] [address] [place] [address] Phone: tel: fax: Referral ID Status Reason Start Date Expiration Date Visits Re quested Visits Authorized [id number] Closed 07/03/2025 10/02/2026 1 1 Reason for Visit * Diagnostic Imaging (Routine) - Closed Specialty Diagnoses / Procedures Referred By Tomas hoffman Referred To Contact Radiology Diagnoses Abnormal mammogram Procedures US Breast Right Limited Roberta Velascosey, TAKER OFF [address] [facility] [address] [place] [address] Phone: tel: fax: Referral ID Status Reason Start Date Expiration Date Visits Re quested Visits Authorized [id number] Closed 07/03/2025 10/02/2026 1 1 Encounter Details Date Type Department Care Team (Late st Contact Info) Description 07/11/2025 7:47 AM EDT - 07/11/2025 11:59 PM EDT Hospital Encounter [facility] [place] [address] [place] [address] Norm Caro MD [address] [facility] [address], [address] [place] [phone] Abnormal mammogram Discharge Disposition: Home or Self [...] unspecified documented in this encounter Care Teams Blocking Machine Tender Relationship Specialty Start Date End Date Roberta Velasco APRN [address] [place] [address] [address] [place] [phone] PCP - General Family Medicine 08/28/22 documented as of this encounter
--- OUTSIDE RECORDS SUMMARY | 2025-08-11 12:55 | XMS_ITS | Clinical Summary ---
Author Organization Healthcare Address [address] [place] [address] Care Team Providers Care Motorcycle Delivery Driver Name Role Phone Unavailable Primary Care Provider [...]
--- OUTSIDE RECORDS SUMMARY | 2025-08-11 12:55 | XMS_ITS | Encounter Summary ---
[facility] [address] [place] [address] Care Team Providers Care Antisubmarine Weapons Officer Name Role Phone Roberta Velasco APRN Primary [...] on filedocumented in this encounter Care Teams Antisubmarine Weapons Officer Relationship Specialty Start Date End Date Roberta Velasco APRN [address] [facility] [address] [facility] [id number] PCP - General Family Medicine 08/28/22 documented as of this encounter
--- OUTSIDE RECORDS SUMMARY | 2025-08-11 12:56 | XMS_ITS | Patient Health Record ---
[facility] [address] [id number] Care Team Providers Care Social Work Supervisor Name Role Phone Marquise Chu Primary Care Provider [phone] Reason For Referral No Information Medications Medication SIG (Take, Route, Frequency, Duration) Notes Start Date End Date Status Tamiflu 75 MG 1 cap(s) orally once a day; Duration: 10 days 12/16/2018 Active Plan Of Treatment No Information Insurance Providers Payer Name Payer Address Payer Phone Subscriber Number Group Number Insured Name Patient Relationship to Insured Coverage Start Date Coverage End Date [facility] ([facility]) [address] [address] [place] [address] [phone] [id number] Lisa Koch Self - patient is the insured
--- OUTSIDE RECORDS SUMMARY | 2025-08-11 12:56 | XMS_ITS | Clinical Summary ---
[facility] Address [address] [place] [address] Care Team Providers Care Dock Attendant Name Role Phone Roberta Velasco APRN Primary Care Provid er Encounters Date Type Department Care Team Description 07/11/2025 7:47 AM EDT - 07/11/2025 11:59 PM EDT Hospital Encounter [facility] [address] [place] [phone] Norm Caro MD Abnormal mammogram Discharge Disposition: Home or Self Care 07/11/2025 Travel 06/29/2025 8:29 AM EDT - 06/29/2025 11:59 PM EDT Hospital Encounter [facility] [address] [place] [phone] Roberta Velasco APRN Visit for screening [...] IMG MAMMOGRAPHY EDUARDA VERA Final Result * [facility] GENETIC RISK ASSESSMENT QUESTIONNAIRE - , (06/28/2025 9:36 AM EDT) Dharmesh 13.1 [facility] NCCN NCCN not met [facility] Comment:High Risk Cancer Ris k Assessment 06/28/2025 9:36 AM EDT Roberta Velasco APRN GENETIC TESTING Edith l Result [facility]
[address] [place] [address], [place] [phone] from Last 3 Months Insurance Care Teams Dock Attendant Relationship Specialty Start Date End Date Roberta Velasco APRN [address] [place] [address] PCP - General Family Medicine 08/28/22
--- OUTSIDE RECORDS SUMMARY | 2025-08-11 12:56 | XMS_ITS | Encounter Summary ---
[facility] Address [address] [place] [address] Care Team Providers Care Bank Officer Name Role Phone Roberta Velasco APRN [...] on filedocumented in this encounter Care Teams Bank Officer Relationship Specialty Start Date End Date Roberta Velasco APRN [address] [facility] [address] [facility] [place] [address] PCP - General Family Medicine 08/28/22 documented as of this encounter
--- NOTE | 2025-08-11 13:00 | CA_ITS ---
APPROVED REPORT EXAM: Comprehensive 2D, Doppler, and color-flow Echocardiogram Electronic Publisher: Estelita Renner RCS, RVS Ht: 5 ft 4 in Wt: 226lbs BSA: 2.06 BP: 106/76 mmHg Indications: Palpitations, Smoker, SOA, CP 2D Dimensions Left Atrium 2.62 cm F: 2.7 - 3.8 LA Volume 102.80 mL LA Volume Index 49.962018 mL/m2 (M/F) 16-34 M-Mode Dimensions RVDd 2.72 cm (0.9-2.6) LA Diam 3.33 cm (1.9-4.0) LVDd 4.83 cm (3.5-5.7) LVDs 3.15 cm (3.5-5.7) IVSd 0.87 cm (0.6-1.1) PWd 0.91 cm (0.6-1.1) EF (Teich) 63.90% EPSs 0.47 cm FS 34.80% EDV (Teich) 109.10 mL ESV (Teich) 39.40 mL LV Diastology E Decel Time 220 (160-240 msec) E/A Ratio 1.56 MED A' 11.50 cm/s LAT A' 11.40 cm/s Aortic Valve GABRIEL Index 1.00 cm2/m2 AoV Peak Víctor. 148.0 (50-130 cm/s) AO Peak GR. 8.80 mmHg AO Mean GR. 4.30 (<5 mmHg) AO VTI 30.5 (18-25 cm) GABRIEL (VTI) 2.11 (2.5-4.5 cm2) Mitral Valve MV A Velocity 65.0 (40-130 cm/s) E/A Ratio 1.56 Tricuspid Valve TR P. Velocity 260.00 cm/s RAP Estimate 10.00 mmHg RVSP 37.10 mmHg Left Ventricle The left ventricle is normal size. Left ventricular systolic function is normal. The left ventricular ejection fraction is within the normal range. There is normal left ventricular wall thickness. There is normal LV segmental wall motion. The left ventricular diastolic function is normal. LVEF is 55% Right Ventricle The right ventricle is normal size. The right ventricular systolic function is normal. Atria The left atrium is mildly dilated. The right atrium is mildly dilated. There is no color Doppler evidence of interatrial shunt. Aortic Valve The aortic valve opens well. There is no hemodynamically significant aortic valvular stenosis. No aortic regurgitation is present. Mitral Valve The mitral valve is normal in structure. No evidence of mitral valve stenosis. Mild mitral regurgitation is present. Tricuspid Valve The tricuspid valve leaflets are thin and pliable. Mild tricuspid regurgitation. RVSP is 25-30 mmHg. Pulmonic Valve The pulmonary valve is grossly normal in structure. Trace pulmonic valve regurgitation is present. Great Vessels The aortic root is normal in size. IVC is normal in size and collapses >50% with inspiration. Pericardium There is no pericardial effusion. Other Information Study Quality: Fair Conclusion Normal biventricular systolic function. Mild biatrial dilation. Mild MR, mild TR. Electronically signed by : Nanci Rodriguez MD 08/19/2025 01:16:33
== END 2025-08-11 23:59 | disposition home or self-care (01) ==
LOC: RT 12:53
PROVIDERS: PCP Nurse Practitioner Family; Visit Provider Physician Assistant
DX: I08.1 Rheumatic disorders of both mitral and tricuspid valves (principal); F17.200 Nicotine dependence, unspecified, uncomplicated
CPT/HCPCS: 93306

== ENCOUNTER 2025-08-22 12:22 | Outpatient (CLI) | payer BC, SELFPAY ==
--- OUTSIDE RECORDS SUMMARY | 2025-06-29 07:29 | XMS_ITS | Encounter Summary ---
Author Organization [facility] Address [address] [place] [id number] Care Team Providers Care Cath Laboratory Technician Name Role Phone Roberta Velasco APRN Primary Care Provid er Reason for Referral * Diagnostic Imaging (Routine) - Closed Specialty Diagnoses / Procedures Referred By Tomas hoffman Referred To Contact Radiology Diagnoses Visit for screening mammogram Procedures Mammo Screening Digital Tomosynthesis Bilateral With CAD Roberta Velasco, [place] [address] [place] [address] Phone: tel: fax: Referral ID Status Reason Start Date Expiration Date Visits Re quested Visits Authorized Closed 05/26/2025 08/25/2026 1 1 Reason for Visit * Diagnostic Imaging (Routine) - Closed Specialty Diagnoses / Procedures Referred By Tomas hoffman Referred To Contact Radiology Diagnoses Visit for screening mammogram Procedures Mammo Screening Digital Tomosynthesis Bilateral With CAD Roberta Velasco, [place] [address] [place] [address] Phone: tel: fax: Referral ID Status Reason Start Date Expiration Date Visits Re quested Visits Authorized Closed 05/26/2025 08/25/2026 1 1 Encounter Details Date Type Department Care Team (Latest Contact Info) Description 06/29/2025 8:29 AM EDT - 06/29/2025 11:59 PM EDT Hospital Encounter [facility] [address] [place] [address] Roberta Velasco, AQUACULTURE DIRECTOR [address] [place] [address] Visit for screening mammogram Discharge Disposition: Home or Self Care Social History Tobacco Use Types Packs/Day Years Used Date Smoking Tobacco: Never Assessed Abuse Screen Answer Date Recorded Unsafe at Home or Work/School Not on file Feels Threatened by Someone? Not on file 06/2023 Does Anyone Keep You from Co ntacting Others or Doint Things Outside the Home? Not on file 07/27/2023 Physical Sign of Abuse Present Not on file 1 Housing Stability Answer Date Recorded Current Living Arrangements Not on file 06/2023 Potentially Unsafe Housing Conditions Not on eagle e 07/27/2023 Family and Community Support Answer Martin e Recorded Help with Day-to-Day Activities Not on file 07/27/2023 Lonely or Isolated Not on file 07/27/2023 Employment Answer Date Recorded Do you want help finding or keeping work or a daisy b? Not on file 07/27/2023 Disabilities Answer Date Recorded Concentrating, Remembering, or Making Decisions Difficulty Not on file 07/27/2023 Doing Errands Independently Difficulty Not on fi le 07/27/2023 Education Answer Date Recorded Help with school or training? Not on file Preferred Language Not on file 07/27/2023 Comments No Sex and Gender Information Value Date Recorded Sex Assigned at Female 06/22/2025 11:36 AM EDT Legal Sex Female 12:05 PM EDT Gender Identity Not on file Sexual Orientation Not on file documented as of this encounter Plan of Treatment Not on file documented as of this encounter Procedures Procedure Name Priority Date/Time Associated Diagnosis Comments MAMMO SCREENING DIGITAL TOMOSYNTHESIS BILATERAL W CAD Routine 06/29/2025 9:12 AM EDT Visit for screening mammogram documented in this encounter Results * (ABNORMAL) Mammo Screening Digital Tomosynthesis Bilateral With CAD (06/29/2025 9:12 AM EDT) Anatomical Region Laterality Modality Breast N/A Mammography 07/02/2025 4:36 PM EDT Impressions 07/02/2025 4:40 PM EDT Impression: BI-RADS 0 Incomplete: Need additional imaging evaluation Recommendation: The patient needs additional imaging. Right breast ultrasound is advised. She will be contacted by our office to schedule an appointment for the additional studies. Please accept this as an order. CAD was utilized. The standard false-negative rate of mammography is between 10% and 25%. Complex patterns or increased breast density will markedly elevate the false-negative rate of mammography. A letter, in lay terminology, with the results of this exam will be mailed to the patient. 07/02/2025 4:[address] Norm Caro MD on Narrative 07/02/2025 4:40 PM EDT DIGITAL SCREENING MAMMOGRAM WITH TOMOSYNTHESIS HISTORY: Screening Mammography. Low dose full field digital breast tomosynthesis imaging was performed with 2D and 3D acquisitions consisting of bilateral CC and MLO views. Examination is compared to prior examination dating back to 05/14/2021. Examination is read in conjunction with computer aided detection. FINDINGS: The breast tissue is heterogeneously dense, which may obscure small masses. There is a 9 mm mass in the upper outer quadrant of the right breast, 3 to 4 cm from the nipple, with the a potential adjacent 4 mm mass. Otherwise, no worrisome masses, calcifications, or architectural distortion is identified bilaterally. Roberta Velasco APRN IMG MAMMOGRAPHY EDUARDA VERA Final Result documented in this encounter Visit Diagnoses Diagnosis Visit for screening mammogram documented in this encounter Care Teams Cath Laboratory Technician Relationship Specialty Start Date End Date Roberta Velasco APRN [address] [place] [address] [place] [phone] PCP - General Family Medicine 08/28/22 documented as of this encounter
--- OUTSIDE RECORDS SUMMARY | 2025-07-11 06:47 | XMS_ITS | Encounter Summary ---
Author Organization [facility] Address [address] [place] [phone] Care Team Providers Care Automated Process Operator Name Role Phone Krista, Roberta Callie SPRAY GUN REPAIRER Primary Care Provid er Reason for Referral * Diagnostic Imaging (Routine) - Closed Specialty Diagnoses / Procedures Referred By Tomas hoffman Referred To Contact Radiology Diagnoses Abnormal mammogram Procedures US Breast Right Limited KristaRoberta murray, SPRAY GUN REPAIRER [address] [facility] [address] [place] [address] Phone: tel: fax: Referral ID Status Reason Start Date Expiration Date Visits Re quested Visits Authorized [id number] Closed 07/03/2025 10/02/2026 1 1 Reason for Visit * Diagnostic Imaging (Routine) - Closed Specialty Diagnoses / Procedures Referred By Tomas hoffman Referred To Contact Radiology Diagnoses Abnormal mammogram Procedures US Breast Right Limited Roberta Velascosey, SPRAY GUN REPAIRER [address] [facility] [address] [place] [address] Phone: tel: fax: Referral ID Status Reason Start Date Expiration Date Visits Re quested Visits Authorized [id number] Closed 07/03/2025 10/02/2026 1 1 Encounter Details Date Type Department Care Team (Late st Contact Info) Description 07/11/2025 7:47 AM EDT - 07/11/2025 11:59 PM EDT Hospital Encounter [facility] [place] [address] [place] [address] Norm Caro MD [address] [facility] [address] [place] [phone] Abnormal mammogram Discharge Disposition: Home or Self Care [...] Procedure Name Priority Date/Time Associated Diagnosis Comments US BREAST RIGHT LIMITED Routine 07/11/2025 8:24 AM EDT Abnormal mammogram documented in this encounter Results * US Breast Right Limited (07/11/2025 8:24 AM EDT) Anatomical Region Laterality Modality Breast Right Ultrasound 07/11/2025 8:19 AM EDT Impressions 07/11/2025 8:21 AM EDT Benign focused ultrasound imaging of the right breast. RECOMMENDATION: Resume annual screening mammography. BI-RADS CATEGORY: 2, BENIGN. A results letter, in lay terminology, was given to the patient at the conclusion of the exam. 07/11/2025 8:[address] Yumiko Silva MD on Narrative 07/11/2025 8:21 AM EDT RIGHT BREAST ULTRASOUND HISTORY: 44-year-old patient recalled from screening mammography dated 06/29/2025 for additional imaging of the right breast. TECHNIQUE: Focused ultrasound imaging was performed of the right breast. COMPARISON: Screening mammogram dated 06/29/2025. FINDINGS: Focused ultrasound imaging of the right breast demonstrates a 0.9 cm cyst in the 9 o'clock position, 4 cm from the nipple. There is also an adjacent 0.5 cm cluster of cysts. These findings correlate to the oval masses noted on screening mammography. No suspicious ultrasound findings were identified. us Norm Caro MD IMG US ORDERABLES Final Result documented in this encounter Visit Diagnoses Diagnosis Abnormal mammogram Abnormal mammogram, unspecified documented in this encounter Care Teams Automated Process Operator Relationship Specialty Start Date End Date Roberta Velasco APRN [address] [place] [address] [address] [place] [phone] PCP - General Family Medicine 08/28/22 documented as of this encounter
--- NOTE | 2025-08-22 | CA_ITS ---
APPROVED REPORT Exam: Exercise Treadmill Technologist: Lisa Marley Ht: 5 ft 9 in Wt: 226 lbs BSA: 2.18 m2 HR: 65 bpm BP: 135/88 mmHg Indications: Chest pain, shortness of breath, palpitations Stress Test Details Test: Exercise stress testing was performed using a Favio protocol. HR Resting HR: 65 bpm Max Heart Rate (APMHR): 176.203438 bpm Max HR Achieved: 158 bpm Target HR (85% APMHR): 149.456120 bpm % of APMHR: 89.77 Recovery HR: 88 bpm BP Resting BP: 135.0/88.0 mmHg Max BP: 186.0/76.0 mmHg Recovery BP: 131.0/69.0 mmHg ECG Stress ECG Conclusion Request to stop test due to dyspnea. Symptoms: Dyspnea Arrhythmias/Ectopy: PAC/PVC ST-T Changes: Less than 0.[address] segment changes. Conclusion: +7 Andrade treadmill score Electronically signed by : Nanci Rodriguez MD 08/23/2025 00:57:42
--- OUTSIDE RECORDS SUMMARY | 2025-08-22 12:26 | XMS_ITS | Encounter Summary ---
[facility] Address [address] [place] [address] Care Team Providers Care Category Planner Name Role Phone Roberta Velasco APRN Primary [...] on filedocumented in this encounter Care Teams Category Planner Relationship Specialty Start Date End Date Roberta Velasco APRN [address] [facility] [address] [facility] [address] PCP - General Family Medicine 08/28/22 documented as of this encounter
--- OUTSIDE RECORDS SUMMARY | 2025-08-22 12:26 | XMS_ITS | Patient Health Record ---
Author [facility] Address [address] [phone] Care Team Providers Care Rink Rat Name Role Phone Marquise Chu Primary Care Provider [phone] Reason For Referral No Information Medications Medication SIG (Take, Route, Frequency, Duration) Notes Start Date End Date Status Tamiflu 75 MG 1 cap(s) orally once a day; Duration: 10 days 12/16/2018 Active Plan Of Treatment No Information Insurance Providers Payer Name Payer Address Payer Phone Subscriber Number Group Number Insured Name Patient Relationship to Insured Coverage Start Date Coverage End Date [facility] ([facility]) [address] [address] [place] [address] [phone] [id number] Lisa Koch Self - patient is the insured
--- OUTSIDE RECORDS SUMMARY | 2025-08-22 12:26 | XMS_ITS | Clinical Summary ---
Author Organization [facility] Address [address] [place] [address] Care Team Providers Care Magnetic Tester Name Role Phone Unavailable Primary Care Provider [...]
--- OUTSIDE RECORDS SUMMARY | 2025-08-22 12:26 | XMS_ITS | Encounter Summary ---
[facility] Address [address] [place] [address] Care Team Providers Care Machinist Instructor Name Role Phone Roberta Velasco APRN Primary [...] on filedocumented in this encounter Care Teams Machinist Instructor Relationship Specialty Start Date End Date Roberta Velasco APRN [address] [facility] [address] [facility] [address] PCP - General Family Medicine 08/28/22 documented as of this encounter
--- OUTSIDE RECORDS SUMMARY | 2025-08-22 12:26 | XMS_ITS | Clinical Summary ---
[facility] Address [address] [place] [address] Care Team Providers Care Small Machine Bindery Operator Name Role Phone Roberta Velasco APRN Primary Care Provid er Encounters Date Type Department Care Team Description 07/11/2025 7:47 AM EDT - 07/11/2025 11:59 PM EDT Hospital Encounter [facility] [address] [place] [phone] Norm Caro MD Abnormal mammogram Discharge Disposition: Home or Self Care 07/11/2025 Travel 06/29/2025 8:29 AM EDT - 06/29/2025 11:59 PM EDT Hospital Encounter [facility] [address] [place] [phone] Roberta Velasco APRN Visit for screening [...] IMG MAMMOGRAPHY EDUARDA VERA Final Result * [employer] GENETIC RISK ASSESSMENT QUESTIONNAIRE - , (06/28/2025 9:36 AM EDT) Dharmesh 13.1 [facility]ET[facility] NCCN NCCN not met [email or web address] Comment:High Risk Cancer Ris k Assessment 06/28/2025 9:36 AM EDT Roberta Velasco APRN GENETIC TESTING Edith l Result [employer]
[address] [place] [address], [place] [phone] from Last 3 Months Insurance Care Teams Small Machine Bindery Operator Relationship Specialty Start Date End Date Roberta Velasco APRN [address] [place] [address] PCP - General Family Medicine 08/28/22
--- NOTE | 2025-08-22 13:00 | NM_ITS ---
APPROVED REPORT Exam: Nuclear Stress Test Indication: cp..soa..palpitations Patient Location: Outpatient Stress Tech: Lisa Marley [place] Tech:Sonja TrianaPHILIPT, RT (R)(N) Ht: 5 ft 9 in Wt: 225 lbs Bra Size: 40g HR: 62 bpm BP: 135/88 mmHg BSA: 2.17 m2 TID: 1.19 BMI: 33.2 History: cp..soa..palpitations Procedure: Patient exercised on Favio protocol 7:14 minutes and sec, resting heart rate 62 bpm, resting blood pressure 135/88 mmHg, with exercise maximum heart rate achived was 158 bpm which is 89 % of the maximum predicted heart rate and blood pressure was 186/76 mmHg. Test was stopped due to fatigue. Patient has average exercise capacity, achieved 9.2 METs of workload on treadmill, the blood pressure response to exercise was normal. Cardiac Stress and Resting SPECT Images: Cardiac Stress and Resting SPECT images were obtained using technetium 99m Myoview 32.9 mCi stress and 10.66 mCi at rest. Resting and stress imaging in supine and prone positions demonstrate no evidence of fixed or reversible perfusion defects. Gated imaging demonstrates normal global LV systolic function. LVEF is calculated at 63%. Conclusion: No evidence of fixed or reversible perfusion defects. Gated imaging demonstrates normal global LV systolic function. LVEF is calculated at 63%. Electronically signed by : Nanci Rodriguez MD 08/23/2025 00:56:06
[2025-08-22 14:20] VITALS: BP 128/81; BP 186/76; PULSE 65; RESP 14
[2025-08-22] MEDS: SODIUM CHLORIDE 0.9% 10ML SYR (RAD ONLY) 10 ML IV ×2 (14:43)
[2025-08-22] MEDS: ISOTOPE MYOVIEW (PER STUDY) 1 DOSE IV (14:43)
== END 2025-08-22 23:59 | disposition home or self-care (01) ==
LOC: RAD 12:23
PROVIDERS: PCP Nurse Practitioner Family; Visit Provider Physician Assistant
DX: I49.1 Atrial premature depolarization (principal); I49.3 Ventricular premature depolarization
CPT/HCPCS: 78452; 93017; 93018; A9502